=== PATIENT | male | born 1995 | race Caucasian/White ===

== ENCOUNTER 2022-11-07 14:16 | Emergency (ER) | payer MEDICAID ==
[2022-11-07 14:54] VITALS: BP 133/65
[2022-11-07] MEDS ORDERED: IBUPROFEN 600 MG TABLET PO STA (16:25)
--- NOTE | 2022-11-07 16:29 | ED Physician Documentation ---
History of Present Illness - Stated complaint Stated Complaint: PX, NUMB RT KNEE - Chief complaint Chief Complaint: Ext Problem - Additonal information Additional information: 27-year-old male presents emergency department for evaluation of acute right knee pain. He works on the [employer]. His right leg got caught between the beams on the float and was twisted inward. Since then pain with bearing weight especially on the anterior knee. No history of previous injury. 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 Review of Systems Constitutional: reports: Reviewed and negative Musculoskeletal: reports: Joint pain PD PAST MEDICAL HISTORY - Past Medical History Past Medical History: No Cardiovascular: None Respiratory: None Neuro: None Endocrine/Autoimmune: None GI: None : None HEENT: None Psych: None Musculoskeletal: None Derm: None - Past Surgical History Past Surgical History: Yes Ortho: Other - Present Medications Home Medications: Ambulatory Orders Medication Instructions Recorded Confirmed Ibuprofen [Motrin] 800 mg PO Q8H PRN #30 tablet 11/07/22 - Allergies Allergies/Adverse Reactions: Allergies Allergy/AdvReac Type Severity Reaction Status Date / Time No Known Drug Allergies Allergy Verified 11/07/22 14:54 - Social History Does the pt smoke?: No Smoking Status: Never smoker Does the pt drink ETOH?: Yes Does the pt have substance abuse?: No - Immunizations Immunizations are current?: No - POLST Patient has POLST: No PD ED PE NORMAL - General General: Alert and oriented X 3, No acute distress - HEENT HEENT: PERRL - Cardiac Cardiac: RRR, No murmur - Respiratory Respiratory: No respiratory distress, Clear bilaterally - Extremities Extremities: No: No tenderness to palpate (Tenderness with palpation of the bilateral medial and lateral joint. Reduced extension secondary to pain. Normal flexion. No laxity. No swelling or ecchymosis.) Results - Vitals Vitals: Vital Signs - 24 hr 11/07/22 11/07/22 14:48 16:10 Temperature 36.8 C Heart Rate 66 Respiratory 16 16 Rate Blood Pressure 133/65 H O2 Saturation 98 Oxygen O2 Source Room air - Rads (name of study) right knee Relevant Findings:: Final report received PD Medical Decision Making - ED course Complexity details: reviewed results, considered differential, d/w patient ED course: 27-year-old male presents to the ER for evaluation of acute right knee pain sustained when his leg was trapped in between the beams on a muscle float. It twisted inward. Since then difficulty bearing weight and pain on the anterior knee. On exam there is no swelling or ecchymosis. No laxity was noted. Negative anterior drawer test. History is most suggestive of a sprain injury. The knee x-ray is interpreted by the radiologist as negative. Patient will be placed in a knee immobilizer and given crutches. He is to be off work for the next week until followed up by [facility] as there is no alternative duty available. Usual emergent return precautions were discussed for worsening symptoms. [id number] completed Departure - Departure Disposition: Home, Self Care Clinical Impression: Right knee sprain Qualifiers: Encounter type: initial encounter Involved ligament of knee: other ligament Qualified Code(s): S83.8X1A - Sprain of other specified parts of right knee, initial encounter Condition: Stable Record reviewed to determine appropriate education?: Yes Instructions: ED Sprain Knee Prescriptions: Ibuprofen [Motrin] 800 mg PO Q8H PRN #30 tablet PRN Reason: PAIN &/OR FEVER Comments: Mercedes the x-ray of your knee does not show any fractures or dislocations. But the story and mechanism of injury suggest a sprain. I would like you to take ibuprofen 2-3 times a day with food to help with pain and inflammation. Over the next week you are to wear the knee immobilizer when out of bed. You can take it off to shower. With simple sprains symptoms will generally get better after a week or so. 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 If not improving at that time you may benefit from referral to orthopedics for further consideration of imaging with an MRI or even referral to PT.
--- NOTE | 2022-11-08 07:07 | XRAY Report ---
PROCEDURE: Knee 3 View RT INDICATIONS: pain/tenderness R KNEE.. TECHNIQUE: 3 views of the right knee(s) were acquired. COMPARISON: None. FINDINGS: Bones: No fractures or dislocations. No suspicious bony lesions. Soft tissues: No effusion. No suspicious soft tissue calcifications or masses. IMPRESSION: No evidence acute bony abnormality of the right knee. If clinical suspicion and/or symptoms persist, further assessment with repeat plain films or advanced imaging (e.g., CT, MRI, or bone scan) may be helpful for further assessment. Reviewed by: Eliu Sumner MD on 11/07/2022 3:38 PM PDT Approved by: Eliu Sumner MD on 11/07/2022 3:38 PM PDT Station ID: [id number]
== END 2022-11-07 17:00 | disposition home or self-care (01) ==
LOC: ED 14:16
DX: S83.8X1A Sprain of other specified parts of right knee, initial encounter (principal); X50.1XXA Overexertion from prolonged static or awkward postures, initial encounter; Y99.0 Civilian activity done for income or pay
CPT/HCPCS: 1040M; 73562; 99283; A9270

== ENCOUNTER 2023-03-12 12:40 | Emergency (ER) | payer MEDICAID, OTHER ==
[2023-03-12 12:52] VITALS: O2SAT 99
[2023-03-12] MEDS ORDERED: HYDROcod/ACETAM 5/325 MG TABLET PO STA (13:15)
--- NOTE | 2023-03-12 13:19 | ED Physician Documentation ---
PD HPI UPPER EXT INJURY - Stated complaint Stated Complaint: LT THUMB INJ - Chief complaint Chief Complaint: Ext Problem - History obtained from History obtained from: Patient - History of Present Illness Location: Left, Finger (Thumb) Pain level max: 7 Pain level now: 5 Improved by: Rest Worsened by: Moving, Palpating Associated symptoms: No: Weakness, Numbness, Tingling, Swelling Contributing factors: No: Anticoagulated, Prior ortho surgery - Additonal information Additional information: 27-year-old male presents to the emergency department stating that he was at work today at [employer], was pulling up a line when his left thumb became caught and bent backwards. Complains of pain to the left thumb. Worse with movement, better with rest. No numbness or tingling. States the pain initially was a 7, now about a 5. Patient is right-handed. Review of Systems Constitutional: denies: Fever GI: denies: Vomiting Musculoskeletal: denies: Neck pain, Back pain Neurologic: denies: Headache PD PAST MEDICAL HISTORY - Past Medical History Past Medical History: Yes Cardiovascular: None Respiratory: None Neuro: None Endocrine/Autoimmune: None GI: None : None HEENT: None Psych: None Musculoskeletal: None Derm: None - Past Surgical History Past Surgical History: Yes Ortho: Other - Present Medications Home Medications: Ambulatory Orders Medication Instructions Recorded Confirmed No Known Home Medications 03/12/23 03/12/23 - Allergies Allergies/Adverse Reactions: Allergies Allergy/AdvReac Type Severity Reaction Status Date / Time No Known Drug Allergies Allergy Verified 03/12/23 12:45 - Social History Does the pt smoke?: Yes Smoking Status: Current every day smoker Does the pt drink ETOH?: Yes Does the pt have substance abuse?: Yes - Immunizations Immunizations are current?: No - POLST Patient has POLST: No PD ED PE NORMAL - Vitals Vital signs reviewed: Yes - General General: Alert and oriented X 3, No acute distress - Derm Derm: Warm and dry - Extremities Extremities: Other (L thumb - no deformity, mild TTP over the MCP joint. NVI. FROM.) Results - Vitals Vitals: Vital Signs - 24 hr 03/12/23 03/12/23 12:45 13:23 Temperature 37.1 C 37 C Heart Rate 81 80 Respiratory 16 16 Rate Blood Pressure 142/87 H 138/79 H O2 Saturation 99 99 Oxygen O2 Source Room air - Rads (name of study) L thumb xray Relevant Findings:: Final report received, See rad report PD Medical Decision Making - ED course Complexity details: reviewed results, considered differential, d/w patient ED course: 27-year-old male with a left thumb sprain. No acute findings on x-ray. Placed in a Velcro thumb spica for comfort. Will have him follow-up with his PCP/orthopedics for further care. Given a dose of Vicodin here for pain. Patient counseled regarding signs and symptoms for which I believe and urgent re-evaluation would be necessary. Patient with good understanding of and agreement to plan and is comfortable going home at this time This document was made in part using voice recognition software. While efforts are made to proofread this document, sound alike and grammatical errors may occur. Departure - Departure Disposition: 01 Home, Self Care Clinical Impression: Left thumb sprain Qualifiers: Encounter type: initial encounter Sprain of finger site: unspecified site Qualified Code(s): S63.602A - Unspecified sprain of left thumb, initial encounter Condition: Good Instructions: ED Sprain Finger Follow-Up: [facility] [Provider Group] [facility] [Provider Group] Comments: Please wear the splint until released by your doctor or orthopedics. Please call for an appointment. You can use Motrin or Tylenol as needed for pain. Please return if you worsen. Your x-ray does not show any fracture today. Forms: PCP List, Activity restrictions Discharge Date/Time: 03/12/23 13:23
[2023-03-12 13:31] VITALS: BP 138/79
--- NOTE | 2023-03-12 13:54 | XRAY Report ---
PROCEDURE: Finger(s) LT INDICATIONS: Trauma TECHNIQUE: PA hand, 2 views of the thumb acquired. COMPARISON: Left thumb radiographs 02/18/2023. FINDINGS: Bones: Mild volar subluxation at the 1st metacarpophalangeal joint, unchanged when compared to 2022. No acute osseous fracture is seen. Soft tissues: No suspicious soft tissue calcifications or masses. IMPRESSION: Mild volar subluxation at the 1st metacarpophalangeal joint, which appears unchanged when compared to the exam from 02/18/2023. No acute osseous fracture. Reviewed by: Patrick Carrasco MD on 03/12/2023 1:53 PM PDT Approved by: Patrick Carrasco MD on 03/12/2023 1:53 PM PDT Station ID: [id number]
== END 2023-03-12 13:23 | disposition home or self-care (01) ==
LOC: ED 12:40
DX: S63.602A Unspecified sprain of left thumb, initial encounter (principal); X58.XXXA Exposure to other specified factors, initial encounter; Y99.0 Civilian activity done for income or pay; F17.200 Nicotine dependence, unspecified, uncomplicated
CPT/HCPCS: 73140; 99283; A9270